=== PATIENT | male | born 1980 | race Caucasian/White ===

== ENCOUNTER 2017-11-12 02:18 | Emergency (ER) | payer SELFPAY ==
[~2017-11-12] VITALS: Ht 177.8 cm; Wt 76.0 kg
[2017-11-12 02:20] VITALS: TEMP 36.6; Ht 177.8 cm; Wt 76.0 kg
--- NOTE | 2017-11-12 02:51 | EMERGENCY ROOM VISIT NOTE ---
History First contact with patient: 02:36 Chief Complaint: MENTAL HEALTH EVALUATION Stated Complaint: [facility] History of Present Illness The patient is a 37 year old male who presents to the Emergency Room for mental health evaluation. Patient admits etoh use this evening, getting in an argument with girlfriend and then to scare her by making a noose. He states this was not a suicide attempt and that he has no thoughts nor plans on harming himself. He admits it was stupid, not thought out, but he states he was drunk and didn't consider consequences. He denies history of suicide attempt. He admits history of PTSD from service ([id number]) with periodic depression that he follows closely with a counsellor. He admits only sporadic etoh use, and that he is a "light-weight." Admits he was drinking due to feeling sad about uncle having a few days ago. This is what lead to the argument with his girlfriend. He denies hallucinations. Denies drug use. Denies attempt at harming self. No other medications. 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 Denies previous inpatient mental health evaluation and is on no medications. Moved to the area from [place] about 4 months ago. Review of Systems See HPI for pertinent positives & negatives. A total of 10 systems reviewed and were otherwise negative. Social History Smoking Status: Current Every Day Smoker Alcohol Use: occasionally Drug Use: none Marital Status: single Housing Status: lives alone Occupation Status: employed Current/Historical Medications No Active Prescriptions or Reported Meds Physical Exam Vital Signs Date Time Temp Pulse Resp B/P (MAP) Pulse Ox O2 Delivery O2 Flow Rate FiO2 11/12/17 06:00 87 18 143/92 95 11/12/17 02:20 36.6 96 18 124/89 98 Room Air Physical Exam GENERAL: Patient is well appearing and in no acute distress. Mildly intoxicated and smells of alcohol HEENT: Mildly injected conjunctiva. No acute trauma, normocephalic atraumatic, mucous membranes moist, no nasal congestion, no scleral icterus. NECK: No stridor, no adenopathy, no meningismus, trachea is midline. LUNGS: No dyspnea. Clear to auscultation and equal bilaterally. No wheeze, no rhonchi. HEART: Regular rate and rhythm. No murmurs, rubs, gallops appreciated. ABDOMEN: large well healed midline abdominal incision scar and right flank scar from 2006 trauma. Soft, nontender, bowel sounds positive, no masses appreciated , no peritonitis. BACK: No midline tenderness, no CVA tenderness EXTREMITIES: Normal motion all extremities, no cyanosis, no edema. NEUROLOGIC: Alert and oriented, no acute motor or sensory deficits, no focal weakness, cranial nerves grossly intact. SKIN: No rash, no jaundice, no diaphoresis. PSYCH: Denies current depression, suicidal ideation, homicidal ideation, hallucinations. Medical Decision & Procedures Laboratory Results 11/12/17 02:47 Red Blood Count 5.04, Mean Corpuscular Volume 93.7, Mean Corpuscular Hemoglobin 33.5, Mean Corpuscular Hemoglobin Concent 35.8, Mean Platelet Volume 11.0, Neutrophils (%) (Auto) 61.4, Lymphocytes (%) (Auto) 25.6, Monocytes (%) (Auto) 10.9, Eosinophils (%) (Auto) 1.1, Basophils (%) (Auto) 0.7, Neutrophils # (Auto ) 4.51, Lymphocytes # (Auto) 1.88, Monocytes # (Auto) 0.80, Eosinophils # (Auto ) 0.08, Basophils # (Auto) 0.05 11/12/17 02:47 Test 11/12/17 02:47 White Blood Count 7.34 K/uL (4.8-10.8) Red Blood Count 5.04 M/uL (4.7-6.1) Hemoglobin 16.9 g/dL (14.0-18.0) Hematocrit 47.2 % (42-52) Mean Corpuscular Volume 93.7 fL (80-100) Mean Corpuscular Hemoglobin 33.5 pg (25-34) Mean Corpuscular Hemoglobin Concent 35.8 g/dl (32-36) Platelet Count 197 K/uL (130-400) Mean Platelet Volume 11.0 fL (7.4-10.4) Neutrophils (%) (Auto) 61.4 % Lymphocytes (%) (Auto) 25.6 % Monocytes (%) (Auto) 10.9 % Eosinophils (%) (Auto) 1.1 % Basophils (%) (Auto) 0.7 % Neutrophils # (Auto) 4.51 K/uL (1.4-6.5) Lymphocytes # (Auto) 1.88 K/uL (1.2-3.4) Monocytes # (Auto) 0.80 K/uL (0.11-0.59) Eosinophils # (Auto) 0.08 K/uL (0-0.5) Basophils # (Auto) 0.05 K/uL (0-0.2) RDW Standard Deviation 40.3 fL (36.4-46.3) RDW Coefficient of Variation 11.9 % (11.5-14.5) Immature Granulocyte % (Auto) 0.3 % Immature Granulocyte # (Auto) 0.02 K/uL (0.00-0.02) Anion Gap 6.0 mmol/L (3-11) Est Creatinine Clear Calc Drug Dose 103.4 ml/min Estimated GFR () 110.2 Estimated GFR (Non- 95.1 BUN/Creatinine Ratio 7.0 (10-20) Calcium Level 8.2 mg/dl (8.5-10.1) Total Bilirubin 0.3 mg/dl (0.2-1) Aspartate Amino Transf (AST/SGOT) 18 U/L (15-37) Alanine Aminotransferase (ALT/SGPT) 32 U/L (12-78) Alkaline Phosphatase 48 U/L (45-117) Total Protein 7.5 gm/dl (6.4-8.2) Albumin 4.0 gm/dl (3.4-5.0) Globulin 3.5 gm/dl (2.5-4.0) Albumin/Globulin Ratio 1.1 (0.9-2) Thyroid Stimulating Hormone (TSH) 0.814 uIu/ml (0.300-4.500) Salicylates Level 4.3 mg/dl (2.8-20) Acetaminophen Level < 2 ug/ml (10-30) Ethyl Alcohol mg/dL 149.0 mg/dl (0-3) Medical Decision Differential: Mood Disorder, Overdose, Infectious, Electrolyte Abnormality, Cardiac, Hepatic, Endocrine, Toxicologic, Neurologic, amongst other pathologies entertained. Pleasantly intoxicated male arrives from home after making suicidal gesture to girlfriend after argument. He made no actual attempt at harming self and has no history of self harm (per patient). Does have history PTSD which he follows closely with councillor. He actually has good insight in to what happened tonight. He makes clear he was not planning on harming self, just was upset with girlfriend. He points out, that as a contractor, he and I both well know that the noose he made was not in any way capable of actual harming him. Police agree with this, and picture I saw corroborate this patient's claim (it is flimsy rope tied to non-load baring ceiling tile). He makes very clear that this noose was not actually a plan to harm himself and that things got out of control. Patient is looking forward to heading back to work, is cooperative, in no distress and engaged in care here. 3 Mariam evaluated patient and note he scores a 0 on risk assessment. He was discharged to home and 3 mariam will follow up with his councillor. Impression Primary Impression: Alcohol intoxication Additional Impressions: PTSD (post-traumatic stress disorder) Suicide gesture Departure Information Dispostion Home / Self-Care Condition GOOD Prescriptions No Active Prescriptions or Reported Meds Patient Instructions My [facility] Additional Instructions Do not drink any more alcohol. We are always here to help. If you feel you are at risk of harming yourself or others call 911 or return to emergency department. Call your counsellor for follow up. Problem Qualifiers
[2017-11-12 03:03] LABS: BASO % 0.7 %; BASO ABS # 0.05 K/uL (0-0.2); COMPLETE YES; EOS % 1.1 %; HEMATOCRIT 47.2 % (42-52); IG% 0.3 %; LYMPH % 25.6 %; LYMPH ABS # 1.88 K/uL (1.2-3.4); MEAN CELL VOLUME 93.7 fL (80-100); MEAN CORPUSCULAR HEMOGLOBIN 33.5 pg (25-34); MEAN CORPUSCULAR HGB CONC 35.8 g/dl (32-36); MONO % 10.9 %; NEUT % 61.4 %; PLATELET COUNT 197 K/uL (130-400); RED BLOOD COUNT 5.04 M/uL (4.7-6.1); WHITE BLOOD COUNT 7.34 K/uL (4.8-10.8)
[2017-11-12 03:20] LABS: CALCIUM 8.2 mg/dl (8.5-10.1); POTASSIUM 3.6 mmol/L (3.5-5.1)
[2017-11-12 03:31] LABS: ALB/GLOB RATIO 1.1 (0.9-2); THYROID STIMULATING HORMONE 0.814 uIu/ml (0.300-4.500)
[2017-11-12 03:41] LABS: ACETAMINOPHEN < 2 ug/ml (10-30)
[2017-11-12 06:00] VITALS: BP 143/92; PULSE 87; O2SAT 95
== END 2017-11-12 06:00 | disposition home or self-care (01) ==
LOC: EDBD 02:18 → C.EDA 02:19
DX: F10.129 Alcohol abuse with intoxication, unspecified (principal); Y90.6 Blood alcohol level of 120-199 mg/100 ml; F43.10 Post-traumatic stress disorder, unspecified; R45.851 Suicidal ideations; F17.200 Nicotine dependence, unspecified, uncomplicated